=== PATIENT | male | born 1960 | race African-American/Black ===

== ENCOUNTER 2023-04-24 12:44 | Inpatient (IN) | payer SELFPAY ==
[~2023-04-24] VITALS: Ht 165.1 cm; Wt 47.2 kg
[2023-04-24] MEDS ORDERED: ONDANSETRON 4MG ODT PO ONE (13:45)
[2023-04-24 13:54] LABS: CHLORIDE 73 mEq/L (98-107); INDEX HEMOLYSI 3 (1-3); INDEX ICTERIC 2 (1-4); INDEX LIPEMIC 1 (1-3)
[2023-04-24 13:59] LABS: SODIUM 116 mEq/L (136-145)
[2023-04-24 14:00] LABS: POTASSIUM 2.1 mEq/L (3.5-5.1)
[2023-04-24 14:01] LABS: BASOPHILS % 0.2 % (0.0-2.0); EOSINOPHILS % 0.1 % (0.0-5.0); HEMATOCRIT. 37.4 % (42.0-52.0); HEMOGLOBIN. 13.5 g/dL (14.0-18.0); LYMPHOCYTES % 15.4 % (20.0-50.0); MEAN CORPUSCULAR HEMOGLOBIN 36.8 pg (28.0-32.0); MEAN CORPUSCULAR HGB CONC 36.2 g/dL (31.0-37.0); MEAN CORPUSCULAR VOLUME 101.6 fL (80.0-94.0); MEAN PLATELET VOLUME 11.8 fl (7.4-10.4); MONOCYTES % 12.8 % (2.0-8.0); NEUTROPHILS % 71.5 % (40.0-76.0); PLATELET 113 x1000/uL (130-400); RED BLOOD CELL COUNT 3.68 mill/uL (4.7-6.1); RED CELL DISTRIBUTION WIDTH 13.7 % (11.6-14.6)
[2023-04-24 14:02] LABS: DIFFERENTIAL COMMENT 1
[2023-04-24 14:03] LABS: ALANINE AMINOTRANSFERASE 60 IU/L (13-61); ALBUMIN 3.3 g/dL (3.4-5.0); ASPARTATE AMINOTRANSFERASE 60 IU/L (15-37); BILIRUBIN TOTAL 2.6 mg/dL (0.1-1.0); CALCIUM 8.1 mg/dL (8.5-10.1); CARBON DIOXIDE 23 mEq/L (21-32); CREATININE 0.5 mg/dL (0.6-1.3); GLUCOSE 129 mg/dL (70-105); PROTEIN TOTAL 7.8 g/dL (6.0-8.3); UREA NITROGEN BLOOD 4 mg/dL (7-21)
[2023-04-24] MEDS ORDERED: SODIUM CHLORIDE 0.9% 1,000 ML IV ONE (14:30)
[2023-04-24] MEDS ORDERED: POTASSIUM CHLORIDE 20MEQ TABLET SR PO ONE (14:30)
[2023-04-24] MEDS ORDERED: POTASSIUM CHLORIDE INJ 40 MEQ in DEXT 5% WATER 250 ML IV ONE (14:30)
[2023-04-24 15:16] LABS: TROPONIN I HIGH SENSITIVITY 4 ng/L (<78)
[2023-04-24] MEDS: KCL 20MEQ/100ML X 2 FOR TOTAL KCL 40MEQ/200ML IV SCH ×2 (15:24→17:27)
[2023-04-24] MEDS ORDERED: LORAZEPAM 2MG/ML CPJ IV PRN (16:45)
[2023-04-24] MEDS ORDERED: CLONIDINE 0.1MG TABLET PO PRN (16:45)
[2023-04-24] MEDS ORDERED: ONDANSETRON HCL 4MG/2ML INJ IV PRN (16:45)
[2023-04-24] MEDS ORDERED: GUAIFENESIN 200MG/10ML SUGAR FREE UDC PO PRN (16:45)
[2023-04-24] MEDS ORDERED: IPRATROPIUM/ALBUTEROL 0.5-3(2.5)MG/3ML NEB HHN PRN (16:45)
[2023-04-24] MEDS ORDERED: ACETAMINOPHEN 325MG TABLET PO PRN ×2 (16:45)
[2023-04-24] MEDS ORDERED: MAGNESIUM/ALUMINUM HYDROXIDE/SIMETHICONE 30ML UDC PO PRN (16:45)
[2023-04-24] MEDS ORDERED: ENOXAPARIN 40MG/0.4ML SYR SUBCUT SCH (17:00)
[2023-04-24] MEDS: DOCUSATE SODIUM 100MG CAPSULE PO SCH (17:00)
[2023-04-24] MEDS ORDERED: MVI, ADULT NO.1 10 ML, FOLIC ACID 1 MG, THIAMINE HCL 100 MG in SODIUM CHLORIDE 0.9% 1,0... IV SCH ×4 (17:30)
[2023-04-24 17:35] LABS: CALCIUM 6.3 mg/dL (8.5-10.1); CHLORIDE 84 mEq/L (98-107); INDEX HEMOLYSI 2 (1-3); INDEX ICTERIC 1 (1-4); INDEX LIPEMIC 1 (1-3); SODIUM 121 mEq/L (136-145)
[2023-04-24 17:39] LABS: CARBON DIOXIDE 23 mEq/L (21-32); CREATININE 0.5 mg/dL (0.6-1.3); GLUCOSE 84 mg/dL (70-105); UREA NITROGEN BLOOD 4 mg/dL (7-21)
[2023-04-24] MEDS: PANTOPRAZOLE 40MG DR TABLET PO SCH (17:41)
[2023-04-24 17:49] LABS: CLARITY URINE CLEAR (CLEAR); COLOR URINE YELLOW (YELLOW); GLUCOSE URINE NEGATIVE (NEGATIVE); KETONES URINE 3+ (NEGATIVE); LEUKOCYTE ESTERASE URINE NEGATIVE (NEGATIVE); NITRITE URINE NEGATIVE (NEGATIVE); OCCULT BLOOD URINE NEGATIVE (NEGATIVE); PH URINE 6.5 (4.5-8.0); PROTEIN URINE NEGATIVE (NEGATIVE); SPECIFIC GRAVITY URINE 1.007 (1.005-1.030)
[2023-04-24 17:55] LABS: POTASSIUM 2.7 mEq/L (3.5-5.1)
[2023-04-24 18:07] LABS: *AMPHETAMINES SCREEN URINE NEGATIVE (NEGATIVE); *BARBITURATES SCREEN URINE NEGATIVE (NEGATIVE); *BENZODIAZEPINES SCREEN URINE NEGATIVE (NEGATIVE); *COCAINE SCREEN URINE NEGATIVE (NEGATIVE); CANNABINOID URINE SCREEN NEGATIVE (NEGATIVE); ECSTASY MDMA SCREEN URINE NEGATIVE (NEGATIVE); OPIATES URINE SCREEN NEGATIVE (NEGATIVE); PHENCYCLIDINE URINE SCREEN NEGATIVE (NEGATIVE)
[2023-04-24] MEDS ORDERED: KCL 20MEQ/100ML PREMIX 100 ML IV NR (19:15)
[2023-04-24] MEDS ORDERED: NALOXONE HCL 0.4MG/ML VIAL IV PRN (19:30)
[2023-04-24 21:18] LABS: INR 1.2; PROTHROMBIN TIME 12.5 sec (9.6-11.0)
[2023-04-24 21:40] VITALS: BP 107/52; PULSE 79; RESP 17; TEMP 97.4
[2023-04-24] MEDS ORDERED: ACET-2708 PO (22:06)
[2023-04-24] MEDS: HYDROCODONE/ACETAMINOPHEN 5/325MG TABLET PO PRN (22:27)
[2023-04-25] VITALS: BP 85/48; PULSE 74; RESP 18; TEMP 97.9
[2023-04-25] MEDS ORDERED: MIDODRINE HCL 5MG TABLET PO SCH ×2 (02:45→06:00)
[2023-04-25 04:00] VITALS: BP 85/70; PULSE 72; RESP 18; TEMP 97.2
[2023-04-25] MEDS: SODIUM CHLORIDE 0.45% 1,000 ML IV SCH (05:31)
[2023-04-25 08:00] VITALS: BP 87/48; PULSE 72; RESP 17; TEMP 97.7
[2023-04-25 08:17] LABS: INDEX HEMOLYSI 2 (1-3); INDEX ICTERIC 1 (1-4); INDEX LIPEMIC 1 (1-3)
[2023-04-25] MEDS: PANTOPRAZOLE 40MG DR TABLET PO SCH (08:28)
[2023-04-25] MEDS: THIAMINE HCL 100MG TABLET PO SCH (08:28)
[2023-04-25] MEDS: DOCUSATE SODIUM 100MG CAPSULE PO SCH ×2 (08:29→17:29)
[2023-04-25] MEDS: HYDROCODONE/ACETAMINOPHEN 5/325MG TABLET PO PRN (08:34)
[2023-04-25 08:35] LABS: ALANINE AMINOTRANSFERASE 38 IU/L (13-61); ALBUMIN 1.4 g/dL (3.4-5.0); ASPARTATE AMINOTRANSFERASE 49 IU/L (15-37); BILIRUBIN TOTAL 1.4 mg/dL (0.1-1.0); CARBON DIOXIDE 25 mEq/L (21-32); CHLORIDE 90 mEq/L (98-107); CHOLESTEROL 55 mg/dL (<200); CREATININE 0.4 mg/dL (0.6-1.3); GLUCOSE 109 mg/dL (70-105); HDL CHOLESTEROL 30 mg/dL (40-59); LDL CHOLESTEROL 21 mg/dL (5-100); POTASSIUM 2.9 mEq/L (3.5-5.1); PROTEIN TOTAL 5.4 g/dL (6.0-8.3); SODIUM 125 mEq/L (136-145); TRIGLYCERIDE 50 mg/dL (0-150); UREA NITROGEN BLOOD 3 mg/dL (7-21)
[2023-04-25 08:39] LABS: CALCIUM 5.6 mg/dL (8.5-10.1)
[2023-04-25 08:49] LABS: BASOPHILS % 0.7 % (0.0-2.0); DIFFERENTIAL COMMENT 0; EOSINOPHILS % 0.6 % (0.0-5.0); HEMATOCRIT. 29.3 % (42.0-52.0); HEMOGLOBIN. 10.3 g/dL (14.0-18.0); LYMPHOCYTES % 23.5 % (20.0-50.0); MEAN CORPUSCULAR HEMOGLOBIN 36.7 pg (28.0-32.0); MEAN CORPUSCULAR HGB CONC 35.2 g/dL (31.0-37.0); MEAN CORPUSCULAR VOLUME 104.2 fL (80.0-94.0); MEAN PLATELET VOLUME 11.9 fl (7.4-10.4); MONOCYTES % 13.3 % (2.0-8.0); NEUTROPHILS % 61.9 % (40.0-76.0); PLATELET 83 x1000/uL (130-400); RED BLOOD CELL COUNT 2.82 mill/uL (4.7-6.1); WHITE BLOOD COUNT 6.6 x1000/uL (4.5-11.0)
[2023-04-25] MEDS ORDERED: KCL 20MEQ/100ML PREMIX 100 ML IV SCH ×2 (10:00→19:00)
[2023-04-25 12:00] VITALS: BP 94/50; PULSE 70; RESP 15; TEMP 97.1
[2023-04-25 14:12] VITALS: BP 94/50; PULSE 70; RESP 15; TEMP 97.1
[2023-04-25] MEDS: MIDODRINE HCL 5MG TABLET PO SCH ×2 (14:15→21:38)
[2023-04-25 14:55] LABS: VITAMIN B12 SERUM 1001 pg/mL (211-911)
[2023-04-25 15:16] LABS: FOLIC ACID (FOLATE) SERUM > 20.00 ng/mL (>5.38)
[2023-04-25 16:00] VITALS: BP 92/54; PULSE 73; RESP 17; TEMP 97.1
[2023-04-25] MEDS ORDERED: LIPASE/PROTEASE/AMYLASE 4,200/14,200/24,600 UNITS CAP DR PO SCH ×2 (18:10)
[2023-04-25] MEDS: [UNRECOGNIZED DRUG - OTHER] PO SCH (18:28)
[2023-04-25] MEDS ORDERED: POTASSIUM CHLORIDE 20MEQ TABLET SR PO NR (18:30)
[2023-04-26] MEDS: HYDROCODONE/ACETAMINOPHEN 5/325MG TABLET PO PRN ×2 (00:56→08:47)
[2023-04-26] MEDS: MIDODRINE HCL 5MG TABLET PO SCH ×2 (05:45→14:53)
[2023-04-26 08:00] VITALS: BP 118/74; PULSE 62; RESP 20; TEMP 97
[2023-04-26 08:12] LABS: BASOPHILS % 0.2 % (0.0-2.0); DIFFERENTIAL COMMENT 0; EOSINOPHILS % 0.1 % (0.0-5.0); HEMATOCRIT. 35.3 % (42.0-52.0); HEMOGLOBIN. 12.6 g/dL (14.0-18.0); LYMPHOCYTES % 11.3 % (20.0-50.0); MEAN CORPUSCULAR HEMOGLOBIN 37.3 pg (28.0-32.0); MEAN CORPUSCULAR HGB CONC 35.8 g/dL (31.0-37.0); MEAN CORPUSCULAR VOLUME 104.3 fL (80.0-94.0); MEAN PLATELET VOLUME 12.7 fl (7.4-10.4); MONOCYTES % 13.3 % (2.0-8.0); NEUTROPHILS % 75.1 % (40.0-76.0); PLATELET 121 x1000/uL (130-400); RED BLOOD CELL COUNT 3.38 mill/uL (4.7-6.1); RED CELL DISTRIBUTION WIDTH 14.2 % (11.6-14.6); WHITE BLOOD COUNT 9.5 x1000/uL (4.5-11.0)
[2023-04-26 08:24] LABS: CHLORIDE 90 mEq/L (98-107); INDEX HEMOLYSI 1 (1-3); INDEX ICTERIC 1 (1-4); INDEX LIPEMIC 1 (1-3); POTASSIUM 3.1 mEq/L (3.5-5.1); SODIUM 128 mEq/L (136-145)
[2023-04-26 08:31] LABS: AMYLASE 124 IU/L (25-115); CALCIUM 7.6 mg/dL (8.5-10.1); CARBON DIOXIDE 30 mEq/L (21-32); CREATININE 0.8 mg/dL (0.6-1.3); GLUCOSE 118 mg/dL (70-105); IRON 59 ug/dL (50-175); TOTAL IRON BINDING CAPACITY 182 ug/dL (250-450); UREA NITROGEN BLOOD 4 mg/dL (7-21)
[2023-04-26] MEDS: [UNRECOGNIZED DRUG - OTHER] PO SCH ×3 (08:46→17:37)
[2023-04-26] MEDS: DOCUSATE SODIUM 100MG CAPSULE PO SCH ×2 (08:46→17:37)
[2023-04-26] MEDS: PANTOPRAZOLE 40MG DR TABLET PO SCH (08:46)
[2023-04-26] MEDS: THIAMINE HCL 100MG TABLET PO SCH (08:46)
[2023-04-26] MEDS: SODIUM CHLORIDE 0.45% 1,000 ML IV SCH (08:53)
[2023-04-26] MEDS ORDERED: POTASSIUM CHLORIDE 20MEQ TABLET SR PO NR (10:00)
[2023-04-26 11:03] LABS: CARCINO EMBRYONIC ANTIGEN 3.9 ng/ml
[2023-04-26 12:00] VITALS: BP 123/74; PULSE 66; RESP 20; TEMP 97
[2023-04-26] MEDS ORDERED: MAGNESIUM 2 G PREMIX 50 ML IV NR (12:00)
[2023-04-26] MEDS ORDERED: FOLI1TAB33 MT (15:36)
[2023-04-26] MEDS ORDERED: POTA-189 PO (15:37)
[2023-04-26] MEDS ORDERED: ONDA4TAB11 PO (15:41)
[2023-04-26 16:00] VITALS: BP 110/58; PULSE 75; RESP 18; TEMP 97.6
[2023-04-26 17:48] VITALS: BP 110/58; PULSE 75; TEMP 97.6; O2SAT 98
== END 2023-04-26 20:58 | disposition home or self-care (01) | DRG 282 ==
LOC: ER 12:44 → 7WST 15:31
PROVIDERS: ADMIT Internal Medicine; ATTEND Internal Medicine
DX: K85.90 Acute pancreatitis without necrosis or infection, unspecified (principal); E43 Unspecified severe protein-calorie malnutrition; D69.6 Thrombocytopenia, unspecified; J18.9 Pneumonia, unspecified organism; E83.51 Hypocalcemia; K76.0 Fatty (change of) liver, not elsewhere classified; E87.1 Hypo-osmolality and hyponatremia; F10.90 Alcohol use, unspecified, uncomplicated; E87.6 Hypokalemia; K40.20 Bilateral inguinal hernia, without obstruction or gangrene, not specified as recurrent; K80.20 Calculus of gallbladder without cholecystitis without obstruction; F17.210 Nicotine dependence, cigarettes, uncomplicated; D53.9 Nutritional anemia, unspecified; N40.0 Benign prostatic hyperplasia without lower urinary tract symptoms; K52.9 Noninfective gastroenteritis and colitis, unspecified; R74.01 Elevation of levels of liver transaminase levels; K82.8 Other specified diseases of gallbladder; E83.42 Hypomagnesemia; K86.1 Other chronic pancreatitis; K57.30 Diverticulosis of large intestine without perforation or abscess without bleeding; Z68.1 Body mass index [BMI] 19.9 or less, adult; Z79.899 Other long term (current) drug therapy
CPT/HCPCS: 36415; 72148; 74176; 76705; 80048; 80053; 80061; 80305; 81003; 82105; 82150; 82378; 82607; 82728; 82746; 83540; 83550; 83735; 83935; 84133; 84153; 84300; 84484; 85025; 85044; 86301; 93970; 97162; 99291; J3411; J3475; J3480; J3490; J7030; J7060; Q0162; G0103

== ENCOUNTER 2023-04-28 10:21 | Emergency (ER) | payer SELFPAY ==
[~2023-04-28] VITALS: Ht 165.1 cm; Wt 47.6 kg
[~2023-04-28 10:21] MED LIST: ACET-2708 PO; FOLI1TAB33 MT; ONDA4TAB11 PO; POTA-189 PO
[2023-04-28 10:51] VITALS: O2SAT 100
[2023-04-28 11:53] LABS: BASOPHILS % 0.1 % (0.0-2.0); DIFFERENTIAL COMMENT 0; EOSINOPHILS % 0.1 % (0.0-5.0); HEMATOCRIT. 35.5 % (42.0-52.0); HEMOGLOBIN. 12.1 g/dL (14.0-18.0); LYMPHOCYTES % 10.3 % (20.0-50.0); MEAN CORPUSCULAR HEMOGLOBIN 37.1 pg (28.0-32.0); MEAN CORPUSCULAR HGB CONC 34.1 g/dL (31.0-37.0); MEAN CORPUSCULAR VOLUME 108.8 fL (80.0-94.0); MEAN PLATELET VOLUME 11.8 fl (7.4-10.4); MONOCYTES % 12.8 % (2.0-8.0); NEUTROPHILS % 76.7 % (40.0-76.0); PLATELET 106 x1000/uL (130-400); RED BLOOD CELL COUNT 3.27 mill/uL (4.7-6.1); RED CELL DISTRIBUTION WIDTH 14.8 % (11.6-14.6); WHITE BLOOD COUNT 12.3 x1000/uL (4.5-11.0)
[2023-04-28 12:18] LABS: CHLORIDE 95 mEq/L (98-107); INDEX HEMOLYSI 2 (1-3); INDEX ICTERIC 1 (1-4); INDEX LIPEMIC 1 (1-3); SODIUM 127 mEq/L (136-145)
[2023-04-28 12:26] LABS: ALANINE AMINOTRANSFERASE 38 IU/L (13-61); ALBUMIN 2.7 g/dL (3.4-5.0); ASPARTATE AMINOTRANSFERASE 45 IU/L (15-37); BILIRUBIN TOTAL 0.9 mg/dL (0.1-1.0); CALCIUM 7.6 mg/dL (8.5-10.1); CARBON DIOXIDE 26 mEq/L (21-32); CREATININE 1.3 mg/dL (0.6-1.3); GLUCOSE 102 mg/dL (70-105); PROTEIN TOTAL 6.4 g/dL (6.0-8.3); UREA NITROGEN BLOOD 12 mg/dL (7-21)
[2023-04-28 13:00] VITALS: TEMP 98.6
[2023-04-28] MEDS ORDERED: ACETAMINOPHEN 325MG TABLET PO ONE (13:00)
[2023-04-28] MEDS ORDERED: ONDANSETRON 4MG ODT PO ONE (13:00)
[2023-04-28] MEDS ORDERED: MAGNESIUM/ALUMINUM HYDROXIDE/SIMETHICONE 30ML UDC PO ONE (13:00)
[2023-04-28] MEDS ORDERED: PANTOPRAZOLE 40MG DR TABLET PO ONE (13:00)
[2023-04-28] MEDS ORDERED: MAG-55 MT (15:17)
[2023-04-28] MEDS ORDERED: FOLI1TAB33 MT (15:17)
[2023-04-28] MEDS ORDERED: FAMO-135 MT (15:17)
[2023-04-28 16:08] VITALS: BP 112/74; PULSE 88; RESP 20
== END 2023-04-28 16:06 | disposition home or self-care (01) ==
LOC: ER 10:21
DX: K29.00 Acute gastritis without bleeding (principal); E87.1 Hypo-osmolality and hyponatremia; F10.20 Alcohol dependence, uncomplicated
CPT/HCPCS: 99284; 80053; 83690; 85025; 36415; Q0162

== ENCOUNTER 2023-05-26 15:23 | Inpatient (IN) | payer SELFPAY ==
[~2023-05-26] VITALS: Ht 165.1 cm; Wt 49.9 kg
[~2023-05-26 15:23] MED LIST changes: +FAMO-135 MT; +MAG-55 MT
[2023-05-26 15:33] VITALS: O2SAT 100
[2023-05-26] MEDS ORDERED: SODIUM CHLORIDE 0.9% 1,000 ML IV ONE (15:45)
[2023-05-26 16:43] LABS: BASOPHILS % 0.5 % (0.0-2.0); DIFFERENTIAL COMMENT 0; HEMATOCRIT. 41.8 % (42.0-52.0); HEMOGLOBIN. 14.1 g/dL (14.0-18.0); LYMPHOCYTES % 12.9 % (20.0-50.0); MEAN CORPUSCULAR HEMOGLOBIN 36.4 pg (28.0-32.0); MEAN CORPUSCULAR HGB CONC 33.9 g/dL (31.0-37.0); MEAN CORPUSCULAR VOLUME 107.4 fL (80.0-94.0); MEAN PLATELET VOLUME 10.7 fl (7.4-10.4); MONOCYTES % 7.2 % (2.0-8.0); NEUTROPHILS % 79.4 % (40.0-76.0); PLATELET 116 x1000/uL (130-400); RED BLOOD CELL COUNT 3.89 mill/uL (4.7-6.1); RED CELL DISTRIBUTION WIDTH 15.4 % (11.6-14.6); WHITE BLOOD COUNT 6.1 x1000/uL (4.5-11.0)
[2023-05-26 16:50] LABS: D-DIMER 4.11 mg/L FEU (<0.50); INR 1.1; PROTHROMBIN TIME 11.5 sec (9.6-11.0)
[2023-05-26 16:52] LABS: CHLORIDE 93 mEq/L (98-107); INDEX HEMOLYSI 1 (1-3); INDEX ICTERIC 1 (1-4); INDEX LIPEMIC 1 (1-3); POTASSIUM 3.1 mEq/L (3.5-5.1); SODIUM 135 mEq/L (136-145)
[2023-05-26 17:07] LABS: ALANINE AMINOTRANSFERASE 83 IU/L (13-61); ALBUMIN 3.1 g/dL (3.4-5.0); ASPARTATE AMINOTRANSFERASE 413 IU/L (15-37); BILIRUBIN TOTAL 1.7 mg/dL (0.1-1.0); CALCIUM 7.6 mg/dL (8.5-10.1); CARBON DIOXIDE 18 mEq/L (21-32); CREATININE 0.6 mg/dL (0.6-1.3); GLUCOSE 94 mg/dL (70-105); PROTEIN TOTAL 8.3 g/dL (6.0-8.3); TROPONIN I HIGH SENSITIVITY 4 ng/L (<78); UREA NITROGEN BLOOD 3 mg/dL (7-21)
[2023-05-26 17:08] LABS: NT PRO B-TYPE NATRIURETIC PEP 28 pg/mL (5-125)
[2023-05-26] MEDS ORDERED: MORPHINE SULFATE 4 MG/ML CPJ (NOT FOR IM USE) IV STA (18:27)
[2023-05-26] MEDS ORDERED: ONDANSETRON HCL 4MG/2ML INJ IV STA (18:27)
[2023-05-26 19:22] LABS: TROPONIN I HIGH SENSITIVITY 4 ng/L (<78)
[2023-05-26] MEDS ORDERED: IPRATROPIUM/ALBUTEROL 0.5-3(2.5)MG/3ML NEB HHN PRN (20:45)
[2023-05-26] MEDS ORDERED: CLONIDINE 0.1MG TABLET PO PRN (20:45)
[2023-05-26] MEDS ORDERED: ONDANSETRON HCL 4MG/2ML INJ IV PRN (20:45)
[2023-05-26] MEDS ORDERED: GUAIFENESIN 200MG/10ML SUGAR FREE UDC PO PRN (20:45)
[2023-05-26] MEDS ORDERED: MAGNESIUM/ALUMINUM HYDROXIDE/SIMETHICONE 30ML UDC PO PRN (20:45)
[2023-05-26] MEDS ORDERED: DOCUSATE SODIUM 100MG CAPSULE PO PRN (20:45)
[2023-05-26] MEDS ORDERED: ACETAMINOPHEN 325MG TABLET PO PRN (20:45)
[2023-05-26] MEDS ORDERED: POTASSIUM CHLORIDE 20MEQ TABLET SR PO NR (21:07)
[2023-05-26 21:38] LABS: AMYLASE 180 IU/L (25-115); CREATINE KINASE 66 IU/L (39-308)
[2023-05-26 22:00] LABS: VITAMIN B12 SERUM 750 pg/mL (211-911)
[2023-05-26] MEDS: ACETAMINOPHEN 325MG TABLET PO PRN (22:34)
[2023-05-26] MEDS ORDERED: IOHEXOL-350 100 ML BOTTLE ONE (23:25)
[2023-05-27 00:30] VITALS: BP 116/74; PULSE 101; RESP 18; TEMP 99.9
[2023-05-27] MEDS: ACETAMINOPHEN 325MG TABLET PO PRN (02:20)
[2023-05-27 04:00] VITALS: BP 100/57; PULSE 97; RESP 19; TEMP 97.5
[2023-05-27 06:39] LABS: BASOPHILS % 0.6 % (0.0-2.0); DIFFERENTIAL COMMENT 0; EOSINOPHILS % 0.3 % (0.0-5.0); HEMATOCRIT. 33.2 % (42.0-52.0); HEMOGLOBIN. 11.6 g/dL (14.0-18.0); MEAN CORPUSCULAR HEMOGLOBIN 37.6 pg (28.0-32.0); MEAN CORPUSCULAR HGB CONC 34.9 g/dL (31.0-37.0); MEAN CORPUSCULAR VOLUME 107.6 fL (80.0-94.0); MEAN PLATELET VOLUME 11.5 fl (7.4-10.4); MONOCYTES % 12.5 % (2.0-8.0); NEUTROPHILS % 64.6 % (40.0-76.0); PLATELET 88 x1000/uL (130-400); RED BLOOD CELL COUNT 3.09 mill/uL (4.7-6.1); WHITE BLOOD COUNT 5.6 x1000/uL (4.5-11.0)
[2023-05-27 07:08] LABS: CHLORIDE 94 mEq/L (98-107); INDEX HEMOLYSI 1 (1-3); INDEX ICTERIC 1 (1-4); INDEX LIPEMIC 1 (1-3); POTASSIUM 3.9 mEq/L (3.5-5.1); SODIUM 131 mEq/L (136-145)
[2023-05-27 07:43] LABS: ALANINE AMINOTRANSFERASE 60 IU/L (13-61); ALBUMIN 2.4 g/dL (3.4-5.0); ASPARTATE AMINOTRANSFERASE 246 IU/L (15-37); BILIRUBIN DIRECT 0.6 mg/dL (0.0-0.2); BILIRUBIN TOTAL 1.9 mg/dL (0.1-1.0); CALCIUM 6.7 mg/dL (8.5-10.1); CHOLESTEROL 112 mg/dL (<200); CREATININE 0.5 mg/dL (0.6-1.3); GLUCOSE 231 mg/dL (70-105); HDL CHOLESTEROL 76 mg/dL (40-59); LDL CHOLESTEROL 43 mg/dL (5-100); PROTEIN TOTAL 6.3 g/dL (6.0-8.3); T4 FREE 0.82 ng/dL (0.76-1.46); TRIGLYCERIDE 58 mg/dL (0-150); TROPONIN I HIGH SENSITIVITY 5 ng/L (<78); UREA NITROGEN BLOOD 3 mg/dL (7-21)
[2023-05-27 08:00] VITALS: BP 108/59; PULSE 72; RESP 18; TEMP 97.4
[2023-05-27] MEDS ORDERED: PANTOPRAZOLE SODIUM 40 MG/VIAL IV SCH (09:00)
[2023-05-27] MEDS ORDERED: FOLIC ACID 1MG TABLET PO SCH (09:00)
[2023-05-27 09:14] LABS: AMMONIA 23 uMol/L (<32)
[2023-05-27] MEDS ORDERED: POTA-189 PO (10:36)
[2023-05-27] MEDS ORDERED: FOLI1TAB33 MT (10:36)
[2023-05-27 11:47] VITALS: BP 108/59; PULSE 72; TEMP 97.4
[2023-05-27 12:00] VITALS: BP 106/63; PULSE 16; RESP 16; TEMP 97
[2023-05-27 12:25] LABS: CARBON DIOXIDE 21 mEq/L (21-32)
== END 2023-05-27 13:59 | disposition home or self-care (01) | DRG 204 ==
LOC: ER 15:23 → MICUSO 19:37 → 7WST 05-27 00:35
PROVIDERS: ADMIT Internal Medicine; ATTEND Internal Medicine
DX: I95.1 Orthostatic hypotension (principal); E44.1 Mild protein-calorie malnutrition; D69.59 Other secondary thrombocytopenia; K74.60 Unspecified cirrhosis of liver; K80.20 Calculus of gallbladder without cholecystitis without obstruction; K76.0 Fatty (change of) liver, not elsewhere classified; G47.9 Sleep disorder, unspecified; Y90.9 Presence of alcohol in blood, level not specified; F17.210 Nicotine dependence, cigarettes, uncomplicated; J43.9 Emphysema, unspecified; K57.90 Diverticulosis of intestine, part unspecified, without perforation or abscess without bleeding; E87.6 Hypokalemia; D75.89 Other specified diseases of blood and blood-forming organs; E87.1 Hypo-osmolality and hyponatremia; K86.1 Other chronic pancreatitis; N40.0 Benign prostatic hyperplasia without lower urinary tract symptoms; N32.89 Other specified disorders of bladder; F10.129 Alcohol abuse with intoxication, unspecified; Z79.1 Long term (current) use of non-steroidal anti-inflammatories (NSAID); Z79.899 Other long term (current) drug therapy; Z68.1 Body mass index [BMI] 19.9 or less, adult
CPT/HCPCS: 36415; 70486; 71045; 71275; 80053; 80061; 80320; 82140; 82150; 82248; 82550; 82607; 82746; 83036; 83880; 84439; 84443; 84484; 85025; 85379; 93005; 93306; 93880; 93970; 99285; C9113; J2270; J2405; J7030; Q9967